=== PATIENT | female | born 1990 | race African-American/Black ===

== ENCOUNTER 2021-04-10 01:20 | Inpatient (IN) ==
[2021-04-10 01:58] LABS: Bacteria,Urine Occasional /HPF (Few); Bilirubin,Urine Negative (Negative); Blood, Urine Negative (Negative); Glucose,Urine (UA) Negative (Negative); Ketones,Urine Negative (Negative); Mucus,Urine Occasional /LPF (Occasional); Nitrite,Urine Negative (Negative); Protein,Urine Negative; RBC,Urine 2 /HPF (0-4); Squamous Epithelial Cell,Urine Occasional /HPF (0-10); Urine Appearance CLEAR (Clear); Urine Color Yellow (Yellow); Urine Specific Gravity 1.017 (1.001-1.035)
[2021-04-10] MEDS ORDERED: BUTORPHANOL 2 MG/ML VIAL IV PRN (02:22)
[2021-04-10] MEDS ORDERED: ONDANSETRON 4 MG/2 ML VIAL IV PRN (02:22)
[2021-04-10] MEDS ORDERED: MEPERIDINE 50 MG/1 ML VIAL IV PRN (02:22)
[2021-04-10] MEDS ORDERED: LACTATED RINGERS 1,000 ML IV PRN (02:22)
[2021-04-10 02:49] LABS: Basophils % 0.2 % (0.0-0.8); Eosinophils # 0.1 10*3/uL (0.0-0.87); Eosinophils % 0.5 % (0.00-10.9); Hematocrit 34.5 VOL% (35.7-47.0); Hemoglobin 10.9 GM/DL (12.0-16.0); Immature Granulocytes % 0.9 %; Immature Granulocytes Absolute 0.14 #; Lymphocytes # 3.5 10*3/uL (1.4-4.0); Lymphocytes % 21.8 % (21.3-54.2); Mean Corpuscular HGB Conc 31.6 GM/DL (32-36); Mean Corpuscular Volume 90.3 FL (87-102); Mean Platelet Volume 9.9 FL (9.6-12.0); Monocytes % 5.9 % (1.7-12.7); Neutrophils % 70.7 % (38.7-73.9); Platelet Count 272 T/CUMM (130-400); Red Blood Count 3.82 MC/CUMM (3.8-5.5); Red Cell Distribution Width 14.5 % (9.3-17.3)
[2021-04-10 03:12] LABS: Albumin 2.7 G/DL (3.4-5.0); Bilirubin,Total 0.4 MG/DL (0.20-1.00); Calcium 8.5 MG/DL (8.5-10.1); Osmolality,Calculated 271.7 MOS/KG (273-304); Potassium 3.7 MMOL/L (3.5-5.1); Total Protein 7.4 G/DL (6.4-8.2)
[2021-04-10] MEDS ORDERED: NALOXONE 0.4 MG/ML VIAL IV PRN (03:46)
[2021-04-10] MEDS ORDERED: hydrOXYzine HCL 25 MG/1 ML VIAL IM PRN (03:46)
[2021-04-10] MEDS ORDERED: ePHEDrine 50 MG/ML VIAL IV PRN (03:46)
[2021-04-10] MEDS ORDERED: diphenhydrAMINE 50 MG/1 ML VIAL IV PRN ×2 (03:46)
[2021-04-10] MEDS ORDERED: FAMOTIDINE 20 MG/2 ML VIAL IV ONE (03:48)
[2021-04-10] MEDS ORDERED: CITRIC ACID/SODIUM CITRATE 30 ML UDCUP PO ONE (03:48)
[2021-04-10] MEDS ORDERED: fentaNYL 2 MCG/ROPIV 0.2% EPID 100 ML EPIDURAL SCH (04:00)
[2021-04-10] MEDS ORDERED: TRANEXAMIC ACID 1,000 MG/10 ML VIAL ONE (04:34)
[2021-04-10] MEDS ORDERED: OXYTOCIN/LR 20 UNIT/1,000 ML BAG IV ONE ×2 (04:34→05:30)
[2021-04-10] MEDS ORDERED: CARBOPROST TROMETHAMINE 250 MCG/ML AMP IM ONE (04:34)
[2021-04-10] MEDS ORDERED: METHYLERGONOVINE 0.2 MG/1 ML AMP ONE (04:34)
[2021-04-10] MEDS ORDERED: miSOPROStoL 200 MCG TABLET ONE (04:34)
[2021-04-10 05:49] LABS: Cord Venous Blood HCO3 20.6 MMOL/L; Cord Venous Blood PCO2 43.2 MMHG; Cord Venous Blood PO2 33.9
[2021-04-10] MEDS: IBUPROFEN 800 MG TABLET PO PRN (15:57)
[2021-04-10] MEDS: ACETAMINOPHEN/CODEINE 300-30 MG TABLET PO PRN ×2 (15:58→20:26)
[2021-04-10] MEDS: DOCUSATE SODIUM 100 MG CAPSULE PO SCH (20:23)
[2021-04-11 05:53] LABS: Basophils # 0.1 10*3/uL (0.0-0.2); Basophils % 0.4 % (0.0-0.8); Eosinophils # 0.2 10*3/uL (0.0-0.87); Eosinophils % 1.7 % (0.00-10.9); Hemoglobin 11.3 GM/DL (12.0-16.0); Immature Granulocytes % 0.8 %; Lymphocytes # 2.5 10*3/uL (1.4-4.0); Lymphocytes % 20.5 % (21.3-54.2); Mean Corpuscular HGB Conc 30.5 GM/DL (32-36); Mean Platelet Volume 10.6 FL (9.6-12.0); Monocytes % 6.9 % (1.7-12.7); Neutrophils % 69.7 % (38.7-73.9); Platelet Count 309 T/CUMM (130-400); Red Blood Count 4.02 MC/CUMM (3.8-5.5); Red Cell Distribution Width 14.4 % (9.3-17.3); White Blood Count 12.1 T/CUMM (4-12)
[2021-04-11] MEDS: DOCUSATE SODIUM 100 MG CAPSULE PO SCH ×2 (08:12→21:06)
[2021-04-11] MEDS: IBUPROFEN 800 MG TABLET PO PRN (11:06)
[2021-04-11] MEDS: ACETAMINOPHEN/CODEINE 300-30 MG TABLET PO PRN (11:20)
[2021-04-12] MEDS: DOCUSATE SODIUM 100 MG CAPSULE PO SCH (09:23)
[2021-04-12 17:14] VITALS: BP 136/86
== END 2021-04-12 19:20 | disposition home or self-care (01) | DRG 560 ==
LOC: N.LDOUT 01:20 → N.LD 01:26 → N.OB 09:31
PROVIDERS: ADMIT Specialist; ATTEND Obstetrics & Gynecology